=== PATIENT | female | born 1990 | race Caucasian/White ===

== ENCOUNTER → 2016-10-04 | Outpatient (CLI) | payer OTHER ==
[~2016-10-04] MED LIST: NO MEDICATIONS
== END | disposition home or self-care (01) ==
LOC: CLAB 09:14
DX: Z01.812 Encounter for preprocedural laboratory examination (principal); E66.01 Morbid (severe) obesity due to excess calories
CPT/HCPCS: 36415; 84443; 86677; G0463

== ENCOUNTER → 2016-11-22 | Outpatient (CLI) | payer OTHER ==
--- NOTE | ~2016-11-22 | CR97 ---
[facility] A Service of [facility] RADIOLOGY TEXT RESULTS PATIENT: GEORGINA MUJICA LOCATION: [facility] : [birth year] UNIT #: [id number] AGE: [address]: Meir Palacios MD SEX: F ORDER DR: [id number] [facility] [address] [place], [place] [address] [id number] O MR#: [id number] Acc #: [id number] NAME: GEORGINA MUJICA : 1990 SEX: F STUDY DATE/TIME: 11/22/2016 8:45 UNIT: [facility] ROOM: STUDY DESCRIPTION: CR Esophagram Attending Physician: Meir Palacios M.D. Referring Physician: Meir Palacios M.D. Ordering Physician: Meir Palacios M.D. Primary Care Physician: Niharika Chang MEDICAL IMAGING REPORT This report is preliminary unless electronic signature is present EXAM Single contrast barium esophagram INDICATION Shortness of breath with activity and morbid obesity. This is a preoperative examination prior to laparoscopic gastric banding procedure. TECHNIQUE Patient was administered thin barium and multiple fluoroscopic images were obtained. FINDINGS The patient's thoracic esophagus is of normal caliber. No stricture or mass lesion is identified. Esophageal motility is within normal limits. There is no hiatal hernia. IMPRESSION Normal single contrast barium esophagram. Total fluoroscopy time was 0.4 minutes. A total of 15 fluoroscopic images were obtained. Dictated by... Cynthia Hassan M.D. THIS IS AN ELECTRONICALLY VERIFIED REPORT Cynthia Hassan M.D. at 11/25/2016 8:16 AM AJAY/davy TD: 11/24/2016 08:35 JOB #: [id number] MEDICAL IMAGING REPORT Page 1 of 1 COPY
--- NOTE | ~2016-11-22 | CR63 ---
[facility] A Service of [facility] & [facility] RADIOLOGY TEXT RESULTS PATIENT: GEORGINA MUJICA LOCATION: [facility] : [birth year] UNIT #: [id number] AGE: [address]: Meir Palacios MD SEX: F ORDER DR: [id number] [facility] [address] [place], [place] [address] [id number] O MR#: [id number] Acc #: [id number] NAME: GEORGINA MUJICA : 1990 SEX: F STUDY DATE/TIME: 11/22/2016 8:27 UNIT: [facility] ROOM: STUDY DESCRIPTION: CR Chest 2 View Attending Physician: Meir Palacios M.D. Referring Physician: Meir Palacios M.D. Ordering Physician: Meir Palacios M.D. Primary Care Physician: Niharika Chang MEDICAL IMAGING REPORT This report is preliminary unless electronic signature is present EXAM 2-view chest, 11/22/2016. HISTORY 26-year-old female for preoperative respiratory clearance prior to gastric Lap-Band surgery and possible paraesophageal hernia repair. Morbid obesity. Shortness of air with activity. COMPARISON Chest 01/12/2015. FINDINGS 2 views of the chest demonstrate clear lungs. No pleural effusion or pneumothorax. Heart size and mediastinum normal. Pulmonary vasculature normal. IMPRESSION No acute cardiopulmonary findings. Dictated by... Shiva Arrieta M.D. THIS IS AN ELECTRONICALLY VERIFIED REPORT Shiva Arrieta M.D. at 11/22/2016 6:37 PM María TD: 11/22/2016 11:44 JOB #: [id number] MEDICAL IMAGING REPORT Page 1 of 1 COPY
--- NOTE | ~2016-11-22 | EKG ---
PATIENT: GEORGINA MUJICA UNIT #: [id number] Ventricular Rate: 77 BPM Atrial Rate: 77 BPM P-R Interval: 134 ms QRS Duration: 82 ms Q-T Interval: 380 ms QTC Calculation(Bezet): 430 ms P Wise: 31 degrees Calculated R Wise: 59 degrees Calculated T Wise: 17 degrees Diagnosis Line: Normal sinus rhythm Diagnosis Line: Cannot rule out Anterior infarct , age Diagnosis Line: undetermined Diagnosis Line: Abnormal ECG Diagnosis Line: No previous ECGs available Diagnosis Line: Confirmed by BAIRON MOLINA MD ([id number]) on Diagnosis Line: 11/22/2016 4:39:05 PM INTERPRETING MD: TRACY LIU
[2016-11-22 09:53] LABS: HEMATOCRIT 39.7 % (35.0-45.0); HEMOGLOBIN 13.1 gm/dL (12.0-16.0); MEAN CELL VOLUME 83.7 FL (83-96); MEAN CORPUSCULAR HEMOGLOBIN 27.7 PG (28-34); MEAN CORPUSCULAR HGB CONC 33.1 g/dL (30-36); MEAN PLATELET VOLUME 8.8 FL (6.5-11.5); RED BLOOD COUNT 4.74 X10e (3.90-5.30); RED CELL DISTRIBUTION WIDTH 12.7 % (11.0-15.5); WHITE BLOOD COUNT 6.8 X10e3 (4.0-10.5)
[2016-11-22 10:27] LABS: ALBUMIN SERUM 3.4 g/dL (3.5-5.0); BILIRUBIN,TOTAL 0.4 mg/dL (0.2-2.0); BUN/CREATININE RATIO 13.75; CALCIUM SERUM 8.8 mg/dL (8.4-10.2); CREATININE SERUM 0.8 mg/dL (0.6-1.4); GLOM FILT RATE Estimated 100.4 mL/min (>60); PROTEIN TOTAL SERUM 6.8 g/dL (6.0-8.3)
== END | disposition home or self-care (01) ==
LOC: CRAD 08:05
PROVIDERS: Surgery
DX: Z01.818 Encounter for other preprocedural examination (principal); E66.01 Morbid (severe) obesity due to excess calories
CPT/HCPCS: 36415; 71020; 74220; 80053; 80061; 84443; 85027; 93005

== ENCOUNTER → 2016-12-07 | Day surgery (SDC) | payer OTHER ==
--- NOTE | ~2016-12-07 | CR7 ---
[facility] A Service of [facility] RADIOLOGY TEXT RESULTS PATIENT: GEORGINA MUJICA LOCATION: [facility] : [birth year] UNIT #: [id number] AGE: [address]: Meir Palacios MD SEX: F ORDER DR: [id number] [facility] [address] [place], [place] [address] [id number] O MR#: [id number] Acc #: [id number] NAME: GEORGINA MUJICA : 1990 SEX: F STUDY DATE/TIME: 12/07/2016 9:20 UNIT: [facility] ROOM: STUDY DESCRIPTION: CR Abdomen Single AP View Attending Physician: Meir Palacios M.D. Ordering Physician: Meir Palacios M.D. Primary Care Physician: Niharika Chang MEDICAL IMAGING REPORT This report is preliminary unless electronic signature is present EXAM AP abdomen, 12/07/2016 at 09:20 HISTORY Postop Lap-Band placement. Abdominal pain. Morbid obesity. Symptoms began today. COMPARISON Esophagram 11/22/2016. CT abdomen and pelvis 12/16/2010. FINDINGS Gastric band device has been placed. The band is located at or just slightly below the expected location of esophagogastric junction. The phi angle is approximately 67.5 degrees. Patient is slightly rotated toward the right. The connector tubing appears grossly intact, with the access port located within the mid or left of midline lower abdomen. There is moderate ascending colonic stool burden. No gross free intraperitoneal air is identified. The lung bases appear clear. IMPRESSION Satisfactory postoperative appearance status post gastric band placement. Dictated by... Mary Quiles M.D. THIS IS AN ELECTRONICALLY VERIFIED REPORT Mary Quiles M.D. at 12/09/2016 7:13 AM Brigette TD: 12/07/2016 09:39 JOB #: [id number] MEDICAL IMAGING REPORT [facility] A Service of [facility] RADIOLOGY TEXT RESULTS PATIENT: GEORGINA MUJICA LOCATION: [facility] #: [id number] : [birth year] UNIT #: [id number] AGE: [address]: Meir Palacios MD SEX: F ORDER DR: Page 1 of 1 COPY
--- NOTE | ~2016-12-07 | OR ---
Unit #: [id number] #: [id number] Patient: GEORGINA MUJICA [id number] [address] [address] [id number] O MR#: [id number] NAME: GEORGINA MUJICA ROOM: Date of Procedure: 12/07/2016 Admission Date: 12/07/2016 Surgeon: Meir Palacios M.D. : 1990 Attending Physician: Meir Palacios M.D. Primary Care Physician: Niharika Chang OPERATIVE REPORT PREOPERATIVE DIAGNOSIS Chronic morbid obesity, body mass index of 39. POSTOPERATIVE DIAGNOSIS 1. Chronic morbid obesity, body mass index of 39. 2. Paraesophageal hiatal hernia. PROCEDURES PERFORMED 1. Laparoscopic adjustable gastric band. 2. Laparoscopic paraesophageal hiatal hernia repair. ASSISTANT Robles Packer M.D. ANESTHESIA General endotracheal anesthesia. ESTIMATED BLOOD LOSS Minimal. IV FLUIDS 800 crystalloid. COMPLICATIONS None. INDICATIONS FOR PROCEDURE The patient is a 26-year-old with chronic morbid obesity. DESCRIPTION OF PROCEDURE The patient was taken to the operating room and placed in supine position. General anesthesia was induced. The abdomen was prepped and draped. A 3-cm incision was then made left of the midline. A 10-mm Visiport was then placed intraabdominal under direct vision. The abdomen was insufflated to 15 mmHg with CO2. The patient was then placed in a steep reversed Trendelenburg. General inspection of the abdomen revealed what appeared to be a paraesophageal hernia. This was identified with a defect at the diaphragm using anterior palpation with the instrument. We then made a small incision in the subxiphoid region. A Cinthya liver retractor was then placed intraabdominal and used to retract the left lobe of the liver upward to further expose the paraesophageal hernia and GE junction. I then placed a 5-mm port in the right upper quadrant, a 10-mm Unit #: [id number] #: [id number] Patient: GEORGINA MUJICA port in the left upper quadrant, and another 5-mm port in the left lower quadrant. The stomach was retracted medial and downward. Upon retracting the stomach, we took down the paraesophageal ligament, exposing the right and left aaron at the paraesophageal hernia. Any hernia sac was reduced. We then repaired the paraesophageal hernia using interrupted #0 Ethibond sutures in a [id number] type fashion. This formed a snug repair to the anterior esophagus. We then retracted the stomach medially and further exposed the angle of His using Bovie electrocautery. The stomach was then retracted laterally. We then took down the hepatogastric ligament with Bovie electrocautery. This exposed the right aaron. Using blunt dissection, I created a retrogastric tunnel from this point to the angle of His. The band was then placed intraabdominal through the 10-mm port site. This was then brought through the retrogastric tunnel in a pars flaccida technique. The band was then closed anteriorly to form a 20-mL to 25-mL anterior gastric pouch. The fundus was then secured to the anterior pouch to prevent movement around the stomach using two interrupted #0 Ethibond sutures. A third suture was then used as a gathering stitch from the lesser curve to the anterior stomach, gathering and imbricating the remaining fundus of the stomach. The tubing was then brought out through the midline 10-mm port site. All ports and the Cinthya liver retractor were removed under direct vision with no evidence of abdominal hemorrhage. A polypropylene mesh was then secured to the posterior face of the laparoscopic band port. This was secured using #0 Ethibond suture. This was then cut to shape. The port was then connected to the tubing and placed into a subcutaneous pocket just anterior to the rectus sheath. Its position was then confirmed. All tubing was then placed intraabdominal. The wounds were then closed with interrupted 4-0 Vicryl. The patient tolerated the procedure well and was sent to the recovery room in good condition. Dictated by... Josafat Peralta/bharati TD: 12/07/2016 22:51 JOB #: [id number] OPERATIVE REPORT Page 1 of 1 X Meir Palacios MD PROCEDURE OPERATIVE NOTE
== END | disposition home or self-care (01) ==
LOC: CSUR 06:02
DX: E66.01 Morbid (severe) obesity due to excess calories (principal); K44.9 Diaphragmatic hernia without obstruction or gangrene; Z68.39 Body mass index [BMI] 39.0-39.9, adult; Z72.4 Inappropriate diet and eating habits
CPT/HCPCS: 74000; 84703; C1781; J0330; J0690; J1100; J1650; J1885; J2250; J2405; J2710; J3010